=== PATIENT | male | born 1950 | race African-American/Black ===

== ENCOUNTER 2021-03-20 09:15 | Outpatient (RCR) | payer OTHER, SELFPAY | END 2021-04-07 10:43 | disposition home or self-care (01) | LOC: ANHDMC 09:15 | PROVIDERS: Visit Provider Internal Medicine Endocrinology, Diabetes & Metabolism | DX: E10.65 Type 1 diabetes mellitus with hyperglycemia (principal); Z71.89 Other specified counseling | CPT/HCPCS: G0108 ==

== ENCOUNTER 2024-04-07 12:30 | Outpatient (RCR) | payer OTHER, SELFPAY | END 2024-04-07 14:40 | disposition home or self-care (01) | LOC: ANHDMC 12:30 | PROVIDERS: PCP Internal Medicine; Visit Provider Internal Medicine Endocrinology, Diabetes & Metabolism | DX: E10.65 Type 1 diabetes mellitus with hyperglycemia (principal); Z71.89 Other specified counseling | CPT/HCPCS: G0108 ==